=== PATIENT | female | born 1980 | race Caucasian/White ===

== ENCOUNTER → 2018-12-14 | Outpatient (CLI) | payer BC ==
[~2018-12-14] MED LIST: IBUP-1027 PO
[2018-12-14 15:13] LABS: BASO % 1 % (0-3); EOS # 0.3 x10^3/uL (0.0-0.7); EOS % 4 % (0-3); HEMATOCRIT 41.6 % (36.0-47.0); LYMPH # 2.3 x10^3/uL (1.0-4.8); LYMPH % 32 % (24-48); MEAN CORPUSCULAR HEMOGLOBIN 29 pg (25-35); MEAN CORPUSCULAR HGB CONC 34 g/dL (31-37); MEAN CORPUSCULAR VOLUME 85 fL (79-100); MONO # 0.6 x10^3/uL (0.0-1.1); MONO % 9 % (0-9); NEUT # 3.9 x10^3uL (1.8-7.7); NEUT % 54 % (31-73); PLATELET COUNT 260 x10^3/uL (140-400); RED BLOOD COUNT 4.88 x10^6/uL (3.50-5.40); RED CELL DISTRIBUTION WIDTH 14.4 % (11.5-14.5); WHITE BLOOD COUNT 7.1 x10^3/uL (4.0-11.0)
[2018-12-14 15:26] LABS: ALBUMIN 3.6 g/dL (3.4-5.0); CALCIUM 8.9 mg/dL (8.5-10.1); CREATININE 0.7 mg/dL (0.6-1.0); GFR 93.6; POTASSIUM 3.5 mmol/L (3.5-5.1); TOTAL BILIRUBIN 0.3 mg/dL (0.2-1.0); TOTAL PROTEIN 7.2 g/dL (6.4-8.2)
--- NOTE | 2018-12-14 15:47 | RAD ---
Chest, 2 views, 12/14/2018: HISTORY: Preop evaluation for hysterectomy The heart size is normal. The lungs are clear. There is no evidence of pleural fluid. Mild scattered degenerative changes are present in the spine. IMPRESSION: No acute cardiopulmonary abnormality is detected. Electronically signed by: Negrito Bermudez MD (12/14/2018 3:44 PM) [facility]
--- NOTE | 2018-12-19 12:19 | NUR ---
FAXED PRE - OP TEST REPORTS TO 'S OFFICE FOR REVIEW 12/15/2018 AT 1040 AND RECEIVED TRANSMITTAL CONFIRMATION.
== END | disposition home or self-care (01) ==
LOC: SURGPAT 14:31
PROVIDERS: ATTEND Obstetrics & Gynecology
DX: Z01.818 Encounter for other preprocedural examination (principal); Z87.891 Personal history of nicotine dependence
CPT/HCPCS: 36415; 71046; 80053; 85025

== ENCOUNTER 2018-12-21 05:52 | Observation (INO) | payer BC ==
[~2018-12-21] VITALS: Ht 162.6 cm; Wt 117.5 kg
[2018-12-21] VITALS (7 sets, daily range): BP systolic 116–125; BP diastolic 65–79
[2018-12-21] MEDS ORDERED: ESTROGENS, CONJ VAGINAL CREAM 30GM TUBE. ONE (06:12)
[2018-12-21] MEDS ORDERED: METHYLENE BLUE 1% 10 ML VIAL. ONE (06:12)
[2018-12-21] MEDS ORDERED: BUPIVACAINE-EPI 0.25%-1:200000 MPF 30 ML VIAL. ONE (06:13)
[2018-12-21 06:34] LABS: U PREG PATIENT NEGATIVE (NEG)
[2018-12-21] MEDS ORDERED: LIDOCAINE 1% PF 2 ML VIAL. ID PRN (07:00)
[2018-12-21] MEDS ORDERED: HYDROmorphone 2 MG/ML VIAL IV PRN (07:00)
[2018-12-21] MEDS ORDERED: ONDANSETRON PF 4 MG/2 ML VIAL. IV PRN ×2 (07:00→10:00)
[2018-12-21] MEDS ORDERED: IV RINGERS,LACTATED 1000ML 1,000 ML IV SCH (07:00)
[2018-12-21] MEDS ORDERED: fentaNYL PF VIAL 100 MCG/2 ML VIAL IV PRN (07:00)
[2018-12-21] MEDS ORDERED: PROCHLORPERAZINE 10 MG/2 ML VIAL. IV PRN (07:00)
[2018-12-21] MEDS ORDERED: MORPHINE SULFATE 2 MG/ML VIAL. IV PRN ×2 (07:00→10:00)
[2018-12-21] MEDS ORDERED: LIDOCAINE 2% PF 5 ML VIAL. ONE (07:02)
[2018-12-21] MEDS ORDERED: ROCURONIUM 50 MG/5 ML VIAL. ONE (07:02)
[2018-12-21] MEDS ORDERED: PROPOFOL 20 ML IV ONE (07:02)
[2018-12-21] MEDS ORDERED: fentaNYL PF VIAL 100 MCG/2 ML VIAL ONE ×2 (07:03→10:00)
[2018-12-21] MEDS ORDERED: SUCCINYLCHOLINE 200 MG/10 ML VIAL. ONE (07:03)
[2018-12-21] MEDS ORDERED: DEXAMETHASONE SOD PHOS 20 MG/5 ML VIAL. ONE (07:26)
[2018-12-21] MEDS ORDERED: DESFLURANE 61 TO 120 MINUTES IH ONE (07:45)
[2018-12-21] MEDS ORDERED: GLYCOPYRROLATE 1 MG/5 ML VIAL. ONE (07:53)
[2018-12-21] MEDS ORDERED: NEOSTIGMINE METHYLSULFATE 5 MG/5 ML SYRINGE. ONE (07:53)
[2018-12-21] MEDS ORDERED: ONDANSETRON PF 4 MG/2 ML VIAL. ONE (07:54)
[2018-12-21] MEDS ORDERED: FAMOTIDINE 20 MG/2 ML VIAL ONE (07:54)
[2018-12-21] MEDS ORDERED: ceFAZolin 2GM PREMIX 2 GM/50 ML BAG IV ONE (08:00)
--- NOTE | 2018-12-21 09:47 | PDOC ---
BRIEF OPERATIVE NOTE Date: Dec 21, 2018 Pre-Op Diagnosis menorrhagia, dysmenorrhea Post-Op Diagnosis same Procedure Performed LAVH/bilateral salpingectomy Surgeon Dr. Emily Rice Shot Coat Tender [facility] Anesthesiologist Dr. Zhang Anesthesia Type: General Blood Loss 100cc IV Fluid 1300cc Urine Output 125cc clear via palma Specimens Obtained cervix, uterus, bilateral tubes Findings mildly enlarged RV uterus, some adhesive disease in upper abd on left side and near appendix on right side (left alone), normal bilateral tubes and ovaries Complications none Operative Note [id number] EMILY RICE MD Dec 21, 2018 09:47
[2018-12-21] MEDS ORDERED: KETOROLAC 30 MG/ML VIAL. ONE (09:52)
[2018-12-21] MEDS: KETOROLAC 30 MG/ML VIAL. IV PRN ×2 (09:54→12:42)
[2018-12-21] MEDS ORDERED: NALOXONE 0.4 MG/ML VIAL. IV PRN (10:00)
[2018-12-21] MEDS ORDERED: diphenhydrAMINE 50 MG/ML VIAL IV PRN (10:00)
[2018-12-21] MEDS ORDERED: ZOLPIDEM 5 MG TABLET. PO PRN (10:00)
[2018-12-21] MEDS ORDERED: LACTULOSE 20 GM/30 ML SOLUTION. PO PRN (10:00)
[2018-12-21] MEDS ORDERED: SIMETHICONE 80 MG TAB.CHEW PO PRN (10:00)
[2018-12-21] MEDS ORDERED: CALCIUM CARBONATE 500 MG TAB.CHEW PO PRN (10:00)
[2018-12-21] MEDS ORDERED: diphenhydrAMINE HCL 25 MG CAPSULE PO PRN (10:00)
[2018-12-21] MEDS ORDERED: oxyCODONE/APAP 5/325 1 TAB TABLET PO PRN (10:00)
[2018-12-21] MEDS ORDERED: 0.9 % SODIUM CHLORIDE 10 ML DISP.SYRIN. IV PRN (10:00)
[2018-12-21] MEDS ORDERED: MAG HYDROX/ALUMINUM HYD/SIMETH 30 ML ORAL.SUSP PO PRN (10:00)
[2018-12-21] MEDS ORDERED: MAGNESIUM HYDROXIDE 2,400 MG/30 ML ORAL.SUSP. PO PRN (10:00)
[2018-12-21] MEDS: fentaNYL PF VIAL 100 MCG/2 ML VIAL IV PRN ×3 (10:10→10:40)
--- NOTE | 2018-12-21 16:04 | OP ---
DATE OF SURGERY: 12/21/2018 PREOPERATIVE DIAGNOSES: Menorrhagia and dysmenorrhea. POSTOPERATIVE DIAGNOSES: Menorrhagia and dysmenorrhea. PROCEDURE: Laparoscopic-assisted vaginal hysterectomy and bilateral salpingectomy. SURGEON: Chey Rice MD. ASSISTANTS: Kathia and Lynn Perez. ANESTHESIOLOGIST: Cole Zhang MD. ANESTHESIA: General. BLOOD LOSS: 100 mL. URINE OUTPUT: 125 mL clear via Vera catheter. IV FLUIDS: 1300 mL of crystalloid. SPECIMEN REMOVED: Cervix, uterus and bilateral tubes. FINDINGS: A mildly enlarged retroverted uterus, some mild adhesive disease in the upper abdomen involving the left kind of upper abdomen and on the right side near the appendix. These were left alone just observed. Normal bilateral tubes and ovaries. COMPLICATIONS: None. DESCRIPTION OF PROCEDURE: This patient was taken to the operating room where general anesthesia was placed. The patient was placed in a dorsal lithotomy position in [facility]. The patient's abdomen and vagina were prepped and draped in the normal sterile fashion and a Vera catheter had been inserted under sterile technique. The patient had already received her preoperative antibiotics as well. Upon my arrival, a timeout was performed. Once everyone agreed, a bivalve speculum was placed in the patient's vagina. Single-tooth tenaculum was used to grasp the anterior lip of the cervix. A 10 mL of 0.25% Marcaine with epinephrine was used to circumferentially inject around the cervix. This was for both hemodissection and hemostatic purposes later. The Valtchev uterine manipulator was placed through the endocervical os, locked on the single tooth tenaculum and the bivalve speculum was then removed. Top gloves were discarded and changed. Attention was turned to the abdomen where a left upper quadrant incision was made. A curved Fiona was used to dissect through the subcuticular layer to the fascia. It was very deep. I did attempt with a short trocar; however, it did not nearly reach, so then I got the long one, felt like I was in, but it moved, so after trying this and various and could not get through, I went in the suprapubic area and placed a short one in immediately with the Visiport got in, used the gas to insufflate and then watched the left upper quadrant one come in under direct visualization and it did take the full length of the long trocar even under direct visualization coming in straight. She had some obesity and central obesity in her abdomen. Once this was in, the camera was moved. When I moved it back down to look at the suprapubic port, the short one was already out, but it was a 5 mm port, so it was just closed at the skin with the Monocryl to close it, so no big deal there and then the left lower quadrant and right lower quadrant ports were placed under direct visualization without difficulty. Initially, the umbilical area was avoided because she had an umbilical hernia repair and I did not want to go in this area due to possible adhesive disease or not knowing if there was mesh or not. That is why the attempt at the left upper quadrant was done, but the left lower quadrant and right lower quadrant ports were made, first after transilluminating the abdomen, which could not be seen terribly well due to the adipose tissue, but finding an area clear, making a small incision and watching the 5 mm atraumatic port come in under direct visualization and then placing 3-5 mL of air in that cuff on the trocar, so they would come out. This was done on that left upper quadrant on too as soon as it was in and watched it come in, so all three port sites were placed under direct visualization once that suprapubic one was done originally. Once we were in, everything was examined, please see the above for all the findings. The left tube was elevated, going below the tube above the ovary, using the LigaSure a salpingectomy was performed and then crossing the left uterine ovarian pedicle leaving the left ovary per patient request, then crossing the left round ligament as well. The bladder flap was then created sharply by elevating it with the [place] and using the monopolar hook to cut across while pushing in cephalad on the uterus making it taut and giving some traction and countertraction with the [place] and pushing in and then using the monopolar hook to cut across and pull down. Once this was done, exactly the same was done on the right side, elevating the tube and ovary going below the tube above the ovary, doing a salpingectomy, crossing the right uterine ovarian pedicle, cauterizing and cutting the whole while with the LigaSure and then crossing the right round ligament and then further meeting that bladder flap anteriorly. Once the bladder was down, the uterine vessels were obtained on the right side easily and going down the right side through the cardinal and broad ligaments to the level of the uterosacral. This was done exactly the same on the left side, crossing getting the uterine vessels and then going down, hugging the cervix, staying right on the cervix, staying vertical and to the level of the uterosacral. The uterus was blanched. There were no adhesions posteriorly. Everything was mobile and free, so at this point, all instruments were removed from the abdomen and attention was turned vaginally. The Valtchev and single tooth were removed. A weighted speculum was placed in the patient's vagina. Thyroid Jonatan clamps were placed on the anterior and posterior lips of the cervix respectively. A scalpel was used to make a circumferential incision in the cervix. An open Ray-Harpreet 4 x 4 was used to gently push up the anterior bladder peritoneum. The anterior cul-de-sac was digitally and bluntly entered and the Ray-Harpreet was removed and the curved [place] was placed in. Once this was done, the cervix was elevated and the posterior cul-de-sac was sharply entered with the Lua scissors. A #0 Vicryl stitch was used to secure the posterior peritoneum here to the vaginal cuff and tagging it with a curved Fiona clamp and cutting and passing the needle off. The short weighted vaginal speculum was removed at this point and replaced with the long weighted Ramiro speculum in the posterior cul-de-sac. Curved Chelsie clamps x 2 were placed on the patient's left uterosacral ligament where they were doubly clamped with curved [place]ane[place], cut with curved Lua scissors and suture ligated x 2 with 0 Vicryl. Second one was taken through the vaginal cuff, securing the uterosacral ligament to the vaginal cuff, tagging it with a straight Fiona clamp and cutting and passing the needle off. This was done exactly the same on the right side, double clamping the uterosacrals with curved Chelsie's, cutting with Lua scissors and suture ligating x 2 with 0 Vicryl, securing uterosacral ligament to the vaginal cuff and tagging it with a straight Fiona clamp. The remaining pedicle on the right side was easily obtained with a right angle Mixter clamp going around it and then the vaginal LigaSure was used to cauterize and cut it in a stepwise fashion. Once this was done, the left side was done as well. There was a small pedicle left on the left with a little bladder flap that was easily cut and then the remaining pedicle. The mixture was taken around and it was cauterized and cut. Cervix, uterus, bilateral tubes were delivered in toto and passed off for permanent pathology. Sponge stick was used to examine the pedicles. A few interrupted stitches were placed in the posterior cuff securing the posterior peritoneum to the vaginal cuff where there was some slight bleeding, making sure this was all it was and it did look good. The remaining pedicles appeared to be hemostatic and looked good. I could not quite get up to the anterior bladder peritoneum, so I just went in front of it and took the 2-0 Vicryl through it, through the left uterosacral ligament, posterior peritoneum and right uterosacral ligament. The long weighted speculum was removed and replaced with the short weighted vaginal prior to this and then I closed the peritoneum with 2-0 Vicryl in a pursestring like fashion. Once this was done, the right and left uterosacral tags were clipped. The cuff was closed in an anterior to posterior running locked fashion with a full length 2-0 Vicryl and it was tied to that posterior cuff tag. Once this was done, the cuff was examined and found to be hemostatic. All gloves were discarded and changed. All bottom counts were correct x 2 by OR personnel and attention was turned back above for a second look. The patient was placed back in Trendelenburg. Gas was reinsufflated. The camera was placed through the left upper quadrant port and it was completely hemostatic. She was copiously irrigated. Tisseel was placed over all the pedicles and cuff with excellent results. All three of the trocars, the gas was taken out of the trocar balloon. The left and right lower quadrant ports were removed under direct visualization. These were hemostatic. Gas was released from that left upper quadrant area and then it was removed. All four port sites, suprapubic, right lower quadrant, left lower quadrant and left upper quadrant were closed with 3-0 Monocryl in a subcuticular fashion with Steri-Strips placed over the top. The patient was awakened from anesthesia and brought to recovery room in stable condition. CHEY RCIE MD DR: YAIMA/ambreen JOB#: [id number] / [id number]
[2018-12-21] MEDS: HYDROcodone/APAP 5/325MG 1 TAB TABLET PO PRN ×2 (16:53→20:56)
[2018-12-22] MEDS: HYDROcodone/APAP 5/325MG 1 TAB TABLET PO PRN ×2 (01:55→08:23)
[2018-12-22 04:51] LABS: CALCIUM 8.6 mg/dL (8.5-10.1); GFR 62.1; POTASSIUM 4.4 mmol/L (3.5-5.1)
[2018-12-22 06:25] VITALS: BP 116/57
--- NOTE | 2018-12-22 08:55 | PDOC ---
SURGICAL PROGRESS NOTE Subjective Doing well without complaints. Scant vag spotting. +flatus and voiding without catheter. Tolerating regular diet, ambulating well. wants to go home Vital Signs Vital Signs Date Time Temp Pulse Resp B/P (MAP) Pulse Ox O2 Delivery O2 Flow Rate FiO2 12/22/18 08:23 95 Room Air 12/22/18 06:25 98.6 57 16 116/57 (76) 98.6 12/21/18 10:30 1 I&O Intake and Output 12/22/18 06:59 Intake Total 1800 ml Output Total 445 ml Balance 1355 ml Intake Oral 1800 ml Output Urine Total 425 ml Estimated Blood Loss 20 ml # Voids 3 PATIENT HAS A SANTIAGO: No General: Alert, Oriented X3, Cooperative, No acute distress HEENT: Atraumatic Heart: Regular rate Abdomen: Soft, No tenderness, No masses, Other (all port sites c/d/i with mild bruising) Extremities: No clubbing, No cyanosis, No edema, No tenderness/swelling Skin: No rashes, No breakdown, No significant lesion Neuro: Normal speech Psych/Mental Status: Mental status NL, Mood NL Labs Laboratory Tests Test 12/21/18 06:14 12/22/18 04:00 Urine Test Negative (NEG) Hematocrit 36.5 % (36.0-47.0) Sodium Level 139 mmol/L (136-145) Potassium Level 4.4 mmol/L (3.5-5.1) Chloride Level 104 mmol/L (98-107) Carbon Dioxide Level 24 mmol/L (21-32) Anion Gap 11 (6-14) Blood Urea Nitrogen 11 mg/dL (7-20) Creatinine 1.0 mg/dL (0.6-1.0) Estimated GFR (Cockcroft-Gault) 62.1 Glucose Level 104 mg/dL (70-99) Calcium Level 8.6 mg/dL (8.5-10.1) Laboratory Tests Test 12/22/18 04:00 Hematocrit 36.5 % (36.0-47.0) Sodium Level 139 mmol/L (136-145) Potassium Level 4.4 mmol/L (3.5-5.1) Chloride Level 104 mmol/L (98-107) Carbon Dioxide Level 24 mmol/L (21-32) Anion Gap 11 (6-14) Blood Urea Nitrogen 11 mg/dL (7-20) Creatinine 1.0 mg/dL (0.6-1.0) Estimated GFR (Cockcroft-Gault) 62.1 Glucose Level 104 mg/dL (70-99) Calcium Level 8.6 mg/dL (8.5-10.1) I have reviewed the following labs, vitals, nursing Cardiovascular: No pertinent hx Pulmonary: No pertinent hx GI: No pertinent hx Heme/Onc: No pertinent hx Psych: No pertinent hx Infectious disease: No pertinent hx ENT: No pertinent hx Renal/: No pertinent hx Endocrine: No pertinent hx Dermatology: No pertinent hx Assessment/Plan POD#1 s/p LAVH/bilateral salpingectomy Routine PO care d/c to home today NPV x 6 weeks Light/limited activity x 2 weeks keep scheduled follow up in office already has narcotics filled at home ok for OTC ibuprofen, prn NO driving while on narcotic pain meds call or return sooner for any other questions or concerns not limited to but including pain unrelieved with pain meds, increased or unexplained vaginal bleeding or T>100.4 CHEY RICE MD Dec 22, 2018 08:55
--- NOTE | 2018-12-22 08:59 | PDOC3 ---
Discharge Summary Visit Information Date of Admission: Dec 21, 2018 Date of Discharge: Dec 22, 2018 Final Diagnosis menorrhagia, dysmenorrhea Brief Hospital Course Allergies Allergies Coded Allergies Type Severity Reaction Last Updated Verified azithromycin Allergy Intermediate Hives 12/21/18 Yes Vital Signs Vital Signs Date Time Temp Pulse Resp B/P (MAP) Pulse Ox O2 Delivery O2 Flow Rate FiO2 12/22/18 08:23 95 Room Air 12/22/18 06:25 98.6 57 16 116/57 (76) 98.6 12/21/18 10:30 1 Lab Results Laboratory Tests Test 12/21/18 06:14 12/22/18 04:00 Urine Test Negative (NEG) Hematocrit 36.5 % (36.0-47.0) Sodium Level 139 mmol/L (136-145) Potassium Level 4.4 mmol/L (3.5-5.1) Chloride Level 104 mmol/L (98-107) Carbon Dioxide Level 24 mmol/L (21-32) Anion Gap 11 (6-14) Blood Urea Nitrogen 11 mg/dL (7-20) Creatinine 1.0 mg/dL (0.6-1.0) Estimated GFR (Cockcroft-Gault) 62.1 Glucose Level 104 mg/dL (70-99) Calcium Level 8.6 mg/dL (8.5-10.1) Laboratory Tests Test 12/22/18 04:00 Hematocrit 36.5 % (36.0-47.0) Sodium Level 139 mmol/L (136-145) Potassium Level 4.4 mmol/L (3.5-5.1) Chloride Level 104 mmol/L (98-107) Carbon Dioxide Level 24 mmol/L (21-32) Anion Gap 11 (6-14) Blood Urea Nitrogen 11 mg/dL (7-20) Creatinine 1.0 mg/dL (0.6-1.0) Estimated GFR (Cockcroft-Gault) 62.1 Glucose Level 104 mg/dL (70-99) Calcium Level 8.6 mg/dL (8.5-10.1) Brief Hospital Course Ms. Franco is a 38 old female who presented with menorrhagia and dysmenorrhea desiring definitive therapy. She underwent and LAVH with bilateral salpingectomy yesterday without complications. She has had an unremarkable postoperative course. She is voiding without catheter, tolerating regular diet , ambulating well and desiring to go home. Discharge Information Condition at Discharge: Improved Follow Up: Weeks Disposition/Orders: D/C to Home Scheduled PRN Ibuprofen (Ibuprofen) 400 Mg Tablet, 400 MG PO PRN Q6HRS PRN for INFLAMMATION, ( Reported) Entered as Reported by: DOMONIQUE LOPEZ on 12/14/18 7915 Last Taken: Unknown Dose on 12/11/18 Last Action: HELD on 12/21/18 0720 by CHEY RICE Patient Instructions Patient Instructions POD#1 s/p LAVH/bilateral salpingectomy Routine PO care d/c to home today NPV x 6 weeks Light/limited activity x 2 weeks keep scheduled follow up in office already has narcotics filled at home ok for OTC ibuprofen, prn NO driving while on narcotic pain meds call or return sooner for any other questions or concerns not limited to but including pain unrelieved with pain meds, increased or unexplained vaginal bleeding or T>100.4 CHEY RICE MD Dec 22, 2018 08:59
--- NOTE | 2018-12-23 09:10 | PATHOLOGY ---
[facility] Accession Number: [id number] . 01 Material submitted: . uterus - UTERUS, CERVIX AND BILATERAL TUBES. Modifiers: bilateral . 01 Clinical history: . Menorrhagia . 02 Diagnosis: Uterus and attached bilateral fallopian tubes, laparoscopic assisted vaginal hysterectomy with bilateral salpingectomy: - Chronic cervicitis with focal squamous metaplasia. - Nabothian cysts, cervix. - Early secretory endometrium. - Adenomyosis, uterine corpus, sub-basal. - Status post previous bilateral tubal ligation. - Right paratubal cysts. - Congestion of bilateral fallopian tubes. . (JP:mml; 12/22/2018) [facility]/12/23/2018 . 02 Comment: There is no atypia or evidence of malignancy. . (JPM:mm; 12/22/2018) . 02 Electronically signed: . Markos Willoughby MD, Pathologist NPI- [id number] . 01 Gross description: . The specimen is received in formalin, labeled "Hart, Jahaira, uterus, cervix, bilateral tubes", is a uterine corpus with attached cervix and bilateral fimbriated, attached, previously ligated fallopian tubes collectively weighing 108 g. The uterine corpus with attached cervix measures 8.7 cm from fundus to cervix, 5.2 cm from cornu to cornu and 4.7 cm from anterior to posterior. The right fallopian tube measures 7.5 cm in length with an average 0.3 cm diameter (2.0 cm in length stump attached to uterus) and the left measures 7.0 cm in length with an average 0.4 cm diameter (1.6 cm in length stump attached to uterus). The serosa is hannah-pink and smooth. The anterior paracervical soft tissue is inked blue. The hannah-pink, glistening ectocervix measures 4.0 x 3.0 cm with a slit-like external os measuring 1.5 cm. Nabothian cysts are present with the largest on posterior aspect measuring 0.8 cm in greatest dimension. The endocervical canal measures 3.7 cm in lenght and is lined by hannah-pink, corrugated mucosa. The endometrial cavity is 5.0 cm from fundus to endocervix and 2.4 cm from cornu to cornu and is lined by hannah-pink, lush mucosa that occupies the entire cavity and measures up to 0.3 cm in thickness. The hannah-pink, mildly trabeculated myometrium measures up to 2.5 cm in thickness and has no discrete nodules. The bilateral fallopian tubes serosa is hannah-pink and glistening and the lumen is well-defined. The right fallopian tube has paratubal cyst. . [employer] tissue is submitted as follows: A1. Anterior cervix A2. Posterior cervix with largest nabothian cyst A3-A5. Anterior endomyometrium, full-thickness (from lower uterine segment to fundus) A6-A8. Posterior endomyometrium, full-thickness (from fundus to lower uterine segment) A9. Right fallopian tube with paratubal cyst (attached fallopian tube segment inked black) A10. Left fallopian tube (attached fallopian tube segment inked black) ([facility]; 12/21/2018) [facility]S . 02 Pathologist provided ICD-10: N72, N88.8, N83.8 . 02 CPT . 199418 Specimen Comment: A courtesy copy of this report has been sent to Specimen Comment: [phone]. Specimen Comment: Report sent to Performed at: 01 [facility] [address], [place] [id number] MD Butch Parada MD Phone: [phone] Performed at: [address], [place] [id number] MD Markos Willoughby MD Phone: [phone]
== END 2018-12-22 10:35 | disposition home or self-care (01) ==
LOC: SURG 05:52 → EDUNIT# 07:30 → 3 NORTH 10:06
PROVIDERS: ADMIT Obstetrics & Gynecology; ATTEND Obstetrics & Gynecology
DX: N92.0 Excessive and frequent menstruation with regular cycle (principal); N94.6 Dysmenorrhea, unspecified; E66.9 Obesity, unspecified; N85.4 Malposition of uterus
CPT/HCPCS: 36415; 58552; 80048; 81025; 85014; 86850; 86900; 86901; 96374; A7015; C1782; G0378; G0379; J0330; J0696; J0780; J1100; J1885; J2001; J2405; J2704; J2710; J3010; J3490; J7030; J7120; 88307; Q9968

== ENCOUNTER → 2021-12-31 | Outpatient (CLI) | payer OTHER ==
--- NOTE | 2021-12-31 11:04 | RAD ---
DATE: 12/31/2021 EXAM: US BREAST LT HISTORY: Palpable mass in the left breast COMPARISON: None. This is the patient's baseline exam. This study was interpreted with the benefit of Computerized Aided Detection (CAD). Breast Density: SCATTERED The breast parenchyma shows scattered fibroglandular densities. Breast pare nchyma level B. FINDINGS: At 1:00 5.5 cm posterior to the nipple in the left breast, there is a mass with partially o bscured margins. This is deep to the palpable marker. No suspicious mass in the right breast. No susp icious calcifications or architectural distortion. Ultrasound of the left breast demonstrates a heterogeneous hypoechoic mass at 1:00 6 cm from the nipp le. This measures 9 x 7 x 5 mm and is slightly irregular with slightly angulated margins. There is al so suggestion of a hyperechoic halo. No internal vascularity. IMPRESSION: Suspicious 9 mm left breast mass at 1:00 5.5 cm from the nipple. Recommend ultrasound-hayley ded biopsy to further evaluate. This as well as the option of six-month follow-up ultrasound was disc ussed by Dr. Hamm with the patient. She was in agreement with proceeding with a biopsy at this ti fl. A voice message was also left at at Zahra Burch's office. BI-RADS CATEGORY: 4 SUSPICIOUS ABNORMALITY- BIOPSY SHOULD BE CONSIDERED RECOMMENDED FOLLOW-UP: Recommend ultrasound-guided biopsy. PQRS compliance statement: Patient information was entered into a reminder system with a target due d ate for the next mammogram. Mammography is a sensitive method for finding small breast cancers, but it does not detect them all a nd is not a substitute for careful clinical examination. A negative mammogram does not negate a clin ically suspicious finding and should not result in delay in biopsying a clinically suspicious abnorma lity. "Our facility is accredited by the [employer] Mammography Program." Electronically signed by: Jenny Hamm MD (12/31/2021 11:01 AM) [id number]
== END ==
LOC: MAMMO 09:33
PROVIDERS: ATTEND Physician Assistant Medical
DX: N63.21 Unspecified lump in the left breast, upper outer quadrant (principal)
CPT/HCPCS: 76641; 77066

== ENCOUNTER → 2022-01-15 | Outpatient (CLI) | payer OTHER ==
--- NOTE | 2022-01-15 10:10 | RAD ---
EXAM: US BREAST BIOPSY 1ST LESION, MG DIAGNOSTICUNILAT MAMMO 01/15/2022 8:36 AM INDICATION: Suspicious left breast mass COMPARISON: 12/31/2021 TECHNIQUE/FINDINGS: The purpose of the procedure, risks and benefits were explained to the patient. Informed consent was obtained. A timeout was performed. The patient was placed supine on the ultrasound table. The mass at 1:00 6 cm from the nipple in the l eft breast was identified and overlying skin marked, prepped, draped in standard sterile fashion. Ski n was anesthetized with 1 percent lidocaine. Next, 4 core biopsy samples were obtained with a coaxial 14-gauge biopsy device. Samples were placed in formalin and sent to the laboratory for analysis. A b iopsy marker was then placed at the biopsy site under ultrasound. [place] were removed, pressure held for hemostasis, and skin cleansed and covered with a dressing. The patient tolerated the procedure w ell and left in stable condition. Post clip mammogram demonstrates appropriate position of clip immediately adjacent to the mass at 1:0 0 6 cm from the nipple. IMPRESSION:Technically successful ultrasound-guided biopsy of breast mass and clip placement Electronically signed by: Jenny Hamm MD (01/15/2022 10:07 AM) [id number]
--- NOTE | 2022-01-19 11:09 | PATHOLOGY ---
[facility] Accession Number: [id number] . 01 Material submitted: . breast - LEFT BREAST MASS 1 O CLOCK 6CMFN 9MM. Modifiers: left . 01 Clinical history: . LEFT BREAST MASS LEFT BREAST BIOPSY . 02 Diagnosis: Breast "left mass 1:00 6 cm FN" needle biopsy: - Foci of fat necrosis, chronic inflammation with hemosiderin deposition, and associated fibrosis. - Benign breast tissue with areas of cyst formation and chronic inflammation. - Negative for atypia and malignancy. LBQ 01/16/2022 1714 Local . 02 Comment: The case is seen in co-review, with consensus, by Dr. Liborio Caballero on 01/16/2022. (MLK/db; 01/16/2022) . 02 Electronically signed: . Jcarlos Gill MD, Pathologist NPI- [id number] . 01 Gross description: . The specimen is received in formalin, labeled "Jahaira Franco, left breast 1:00 6 cm from nipple". Received are four needle cores of fibrofatty tissue measuring 1.5 x 0.8 x 0.2 cm in aggregate dimensions. The specimen is submitted entirely in cassettes A1 through A3. The cold ischemic time is less than 1 minute. The total formalin fixation time is 10 hours and 39 minutes. (CAA; 01/15/2022) QAC/QAC 01/16/2022 1453 Local . 02 Pathologist provided ICD-10: N61.0, N64.1 . 02 CPT . 764351 Specimen Comment: A courtesy copy of this report has been sent to [phone], [phone] Specimen Comment: [id number] Specimen Comment: Report sent to / DR RESTREPO Specimen Comment: A duplicate report has been generated due to demographic updates. Performed at: 01 [facility] [address] [id number] MD Carl Benjamin MD Phone: [phone] Performed at: 02 [facility] [address] [id number] MD Mike Crawford MD Phone: [phone]
== END | disposition home or self-care (01) ==
LOC: US 08:32
PROVIDERS: ATTEND Physician Assistant Medical
DX: N63.21 Unspecified lump in the left breast, upper outer quadrant (principal); R92.8 Other abnormal and inconclusive findings on diagnostic imaging of breast; Z79.899 Other long term (current) drug therapy; Z87.891 Personal history of nicotine dependence; Z88.1 Allergy status to other antibiotic agents
CPT/HCPCS: 19083; 77065; A4648; C1819; 88305